=== PATIENT | male | born 1965 | race Caucasian/White ===

== ENCOUNTER 2024-03-15 21:37 | Emergency (ER) | payer OTHER ==
[~2024-03-15] VITALS: Ht 177.8 cm; Wt 69.4 kg
[2024-03-15] MEDS ORDERED: Ketorolac Tromethamine 30mg Vial IM ONE (22:30)
[2024-03-15] MEDS ORDERED: Robaxin750 MG PO (22:32)
== END 2024-03-15 22:40 | disposition home or self-care (01) ==
LOC: ER 21:37
DX: S29.012A Strain of muscle and tendon of back wall of thorax, initial encounter (principal); X58.XXXA Exposure to other specified factors, initial encounter
CPT/HCPCS: 96372; 99282-25; J1885